=== PATIENT | female | born 1980 | race Caucasian/White ===

== ENCOUNTER 2017-06-23 21:13 | Emergency (ER) | payer SELFPAY ==
[2017-06-23] MEDS ORDERED: Ketorolac INJ* 30 MG/ML 1 ML VIAL IV ONE (22:06)
[2017-06-23] MEDS ORDERED: NS 0.9% 1000 ML* 1,000 ML IV ONE (22:06)
[2017-06-23] MEDS ORDERED: Ondansetron INJ* 2 MG/ML VIAL IV ONE (22:39)
[2017-06-23 22:46] LABS: Urine Bilirubin Negative (Negative); Urine Glucose Negative (Negative); Urine Nitrite Negative (Negative)
[2017-06-23 23:04] LABS: Hematocrit 37 % (35-47); Mean Corpuscular HGB Conc 33 g/dl (31-36); Mean Corpuscular Hemoglobin 29 pg (27-31); Mean Corpuscular Volume 88 fL (80-97); Mean Platelet Volume 8 um3 (7.4-10.4); Red Blood Count 4.18 10^6/ul (4.0-5.4); Red Cell Distribution Width 15 % (10.5-15); White Blood Count 4.6 10^3/ul (3.5-10.8)
[2017-06-23 23:15] LABS: ALT 11 U/L (7-52); AST 13 U/L (13-39); Albumin 4.5 g/dL (3.2-5.2); Alkaline Phosphatase 37 U/L (34-104); Anion Gap 4 mmol/L (2-11); BUN/Creatinine Ratio 15.1 (8-20); Blood Urea Nitrogen 11 mg/dL (6-24); C Reactive Protein < 1.00 mg/L (< 5.00); CO2 Carbon Dioxide 25 mmol/L (22-32); Calcium 8.8 mg/dL (8.6-10.3); Chloride 106 mmol/L (101-111); EGFR African American 114.7 (>60); EGFR Non-African American 89.2 (>60); Globulin 2.6 g/dL (2-4); Glucose 89 mg/dL (70-100); Sodium 135 mmol/L (133-145); Total Protein 7.1 g/dL (6.4-8.9)
[2017-06-23] MEDS ORDERED: oxyCODONE/Acetamin 5/325 MG* TAB PO ONE (23:29)
[2017-06-23] MEDS ORDERED: Ondansetron ODT TAB* 4 MG SL PRN (23:50)
[2017-06-23] MEDS ORDERED: Ondansetron TAB* 4 MG ONE (23:53)
[2017-06-23] MEDS ORDERED: Ondansetron TAB* 4 MG PO ONE (23:56)
[2017-06-24 00:19] VITALS: BP 132/69
--- NOTE | 2017-06-24 08:14 | RAD ---
HISTORY: Pelvic pain, history of cysts and endometriosis COMPARISONS: December 01, 2010 TECHNIQUE: Multiple transverse and longitudinal ultrasound images were obtained of the pelvis using grayscale, color Doppler, and spectral Doppler imaging using the endovaginal transducer. FINDINGS: UTERUS: The uterus measures 8 x 3.9 x 5.8 cm. There is a myometrial fibroid of anterior body measuring 1.1 x 0.5 x 0.8 centimeters. Multiple nabothian cysts are noted. ENDOMETRIUM: The endometrial stripe is smooth. The endometrium measures 0.4 cm in thickness. An IUD is noted centrally within the endometrial cavity towards the fundus. CUL-DE-SAC: There is no free fluid within the cul-de-sac. RIGHT OVARY: The right ovary measures 3.9 x 1.9 x 2.2 cm. Follicular cysts are noted measuring up to 1.9 cm. Normal arterial and venous waveforms are identifiable within the ovary on spectral Doppler imaging. LEFT OVARY: The left ovary measures 3.6 x 1.7 x 2.3 cm. Follicular cysts are noted measuring up to 1.8 cm. Normal arterial and venous waveforms are identifiable within the ovary on spectral Doppler imaging. BLADDER: The bladder is not well visualized. IMPRESSION: 1. FIBROID UTERUS. 2. IUD. 3. NO SONOGRAPHIC FEATURES OF TORSION. PLEASE NOTE THAT PARTIAL OR INTERMITTENT TORSION MAY BE SONOGRAPHICALLY NORMAL.
--- NOTE | 2017-06-29 06:20 | ED ---
Aminata Mark SooYoung, scribed for Joe Booker MD on 06/23/17 at 2206 . Abdominal Pain/Female - HPI Summary HPI Summary: A 36 y/o F presents to ED with c/o constant, suprapubic abd pain onset one week ago and worsening. She states the pain is of undulating intensity. Pert PMHx: ovarian cysts, endometriosis. She has an IUD in place, but has been spotting for past three months. She took some Percocet to mild relief. Pt lives in [place] and has been unable to see a PCP in the [place] area, and [facility] informed her that they didn't have U/S, referred her to ED for evaluation. - History of Current Complaint Chief Complaint: EDAbdPain Stated Complaint: LOWER LT ABD PAIN Time Seen by Provider: 06/23/17 22:00 Hx Obtained From: Patient, Medical Records Onset/Duration: Gradual Onset, Lasting Weeks - one week, Still Present Timing: Constant Severity Initially: Moderate Severity Currently: Moderate Pain Intensity: 6 Pain Scale Used: 0-10 Numeric Location: Suprapubic Alleviating Factor(s): Medications - Percocet, mildly Allergies/Adverse Reactions: Allergies Allergy/AdvReac Type Severity Reaction Status Date / Time No Known Allergies Allergy Verified 06/23/17 21:18 PMH/Surg Hx/FS Hx/Imm Hx Previously Healthy: No History: Reports: Other Problems/Disorders - ovarian cysts, endometriosis Sensory History: Denies: Hx Legally Blind Opthamlomology History: Denies: Hx Legally Blind Infectious Disease History: No Infectious Disease History: Denies: Traveled Outside the [place] in Last 30 Days - Family History Known Family History: Positive: Other - pos: endometriosis - Social History Occupation: Unemployed Lives: Alone Alcohol Use: None Hx Substance Use: No Substance Use Type: Reports: None Hx Tobacco Use: No Smoking Status (MU): Never Smoked Tobacco Review of Systems Negative: Fever Positive: Abdominal Pain All Other Systems Reviewed And Are Negative: Yes Physical Exam Triage Information Reviewed: Yes Vital Signs On Initial Exam: Initial Vitals Temp Pulse Resp BP Pulse Ox 98.2 F 62 18 127/89 100 06/23/17 21:16 06/23/17 21:16 06/23/17 21:16 06/23/17 21:16 06/23/17 21:16 Vital Signs Reviewed: Yes Appearance: Positive: Well-Appearing, No Pain Distress Skin: Positive: Warm Head/Face: Positive: Normal Head/Face Inspection Eyes: Positive: JUAN ENT: Positive: Hearing grossly normal Neck: Positive: Supple, Nontender Respiratory/Lung Sounds: Positive: Breath Sounds Present Cardiovascular: Positive: RRR Abdomen Description: Positive: Soft, Other: - mild suprspubic trenderness. Negative: Distended, Guarding Bowel Sounds: Positive: Present Musculoskeletal: Positive: Strength/ROM Intact Neurological: Positive: Alert, Oriented to Person Place, Time - [place] Coma Scale Coma Scale Total: 15 Diagnostics - Vital Signs Vital Signs Temp Pulse Resp BP Pulse Ox 06/23/17 21:16 98.2 F 62 18 127/89 100 - Laboratory Lab Results: Lab Results 06/23/17 06/23/17 06/23/17 Range/Units 22:36 22:50 22:50 WBC 4.6 (3.5-10.8) 10^3/ul RBC 4.18 (4.0-5.4) 10^6/ul Hgb 12.0 (12.0-16.0) g/dl Hct 37 (35-47) % MCV 88 (80-97) fL MCH 29 (27-31) pg MCHC 33 (31-36) g/dl RDW 15 (10.5-15) % Plt Count 194 (150-450) 10^3/ul MPV 8 (7.4-10.4) um3 Neut % (Auto) 49.5 (38-83) % Lymph % (Auto) 21.8 L (25-47) % Leake % (Auto) 18.7 H (1-9) % Eos % (Auto) 4.6 (0-6) % Baso % (Auto) 5.4 H (0-2) % Absolute Neuts (auto) 2.3 (1.5-7.7) 10^3/ul Absolute Lymphs (auto) 1.0 (1.0-4.8) 10^3/ul Absolute Monos (auto) 0.9 H (0-0.8) 10^3/ul Absolute Eos (auto) 0.2 (0-0.6) 10^3/ul Absolute Basos (auto) 0.2 (0-0.2) 10^3/ul Absolute Nucleated RBC 0 10^3/ul Nucleated RBC % 0.1 Sodium 135 (133-145) mmol/L Potassium 4.0 (3.5-5.0) mmol/L Chloride 106 (101-111) mmol/L Carbon Dioxide 25 (22-32) mmol/L Anion Gap 4 (2-11) mmol/L BUN 11 (6-24) mg/dL Creatinine 0.73 (0.51-0.95) mg/dL Est GFR ( Amer) 114.7 (>60) Est GFR (Non-Af Amer) 89.2 (>60) BUN/Creatinine Ratio 15.1 (8-20) Glucose 89 (70-100) mg/dL Calcium 8.8 (8.6-10.3) mg/dL Total Bilirubin 0.50 (0.2-1.0) mg/dL AST 13 (13-39) U/L ALT 11 (7-52) U/L Alkaline Phosphatase 37 (34-104) U/L C-Reactive Protein < 1.00 (< 5.00) mg/L Total Protein 7.1 (6.4-8.9) g/dL Albumin 4.5 (3.2-5.2) g/dL Globulin 2.6 (2-4) g/dL Albumin/Globulin Ratio 1.7 (1-3) Beta HCG, Quant < 0.60 mIU/mL Urine Color Yellow Urine Appearance Clear Urine pH 5.0 (5-9) Ur Specific [place] 1.021 (1.010-1.030) Urine Protein Negative (Negative) Urine Ketones Trace H (Negative) Urine Blood Negative (Negative) Urine Nitrate Negative (Negative) Urine Bilirubin Negative (Negative) Urine Urobilinogen Negative (Negative) Ur Leukocyte Esterase Negative (Negative) Urine Glucose Negative (Negative) Urine Ascorbic Acid * H (Negative) Result Diagrams: 06/23/17 22:50 06/23/17 22:50 Lab Statement: Any lab studies that have been ordered have been reviewed, and results considered in the medical decision making process. - Ultrasound No standard instances Ultrasound Interpretation: Positive (See Comments) - PELVIC U/S: IUD noted. Uterus retroverted. 8mm uterine fibroid. Endometrial strip is normal at 4.4 mm thickness. Multiple small nabothian cysts are noted. 2cm R adnexal cyst. Otherwise nml R ovary with positive Doppler blood flow. 1.8cm L adnexal cyst. Otherwise nml L ovary with positive Doppler blood flow. No acute abnormalities. Ultrasound Interpretation Completed By: Radiologist Re-Evaluation - Re-Evaluation 1 Re-Evaluation Time: 23:28 Change: Improved Comment: Discussing results and dispo with pt. Pt voiced understanding. Abdominal Pain Fem Course/Dx - Course Course Of Treatment: Pt is a 36 y/o F with PMHx: endometriosis and ovarian cysts presenting with c/o constant, suprapubic abd pain onset one week ago and worsening. She states the pain is of undulating intensity. She has an IUD in place, but has been spotting for past three months. She took some Percocet to mild relief. Pt lives in [place] and has been unable to see a PCP in the [place] area. Pt in fluids, toradol in ED. Blood work results are without significant abnormality. UA is nml except trace ketones and ascorbic acid present. Pelvic U /S impression shows "IUD noted. Uterus retroverted. 8mm uterine fibroid. Endometrial strip is normal at 4.4 mm thickness. Multiple small nabothian cysts are noted. 2cm R adnexal cyst. Otherwise nml R ovary with positive Doppler blood flow. 1.8cm L adnexal cyst. Otherwise nml L ovary with positive Doppler blood flow. No acute abnormalities." - Diagnoses Provider Diagnoses: Pelvic pain Discharge - Discharge Plan Condition: Stable Disposition: HOME Patient Education Materials: Pelvic Pain in Women (ED) Referrals: [facility] [place] [facility] [Outside] Non Staff,Doctor [Primary Care Provider] - Mychal Ryan MD [Medical Doctor] - 1 Day Additional Instructions: Follow up with Dr. Ryan, [employer], tomorrow. Please return to the ED if you experience new or worsening symptoms. The documentation as recorded by the Aimnata multani SooYoung accurately reflects the service I personally performed and the decisions made by me, Joe Booker MD.
== END 2017-06-24 00:18 | disposition home or self-care (01) ==
LOC: ED 21:13
DX: R10.2 Pelvic and perineal pain (principal); D25.9 Leiomyoma of uterus, unspecified; R10.32 Left lower quadrant pain
CPT/HCPCS: 36415; 76830; 80053; 81003; 84702; 85025; 86140; 96374; 96375; 99283; A9270-GY; J1885; J2405

== ENCOUNTER 2018-01-26 14:31 | Emergency (ER) | payer MEDICAID ==
[2018-01-26] MEDS ORDERED: NS 0.9% 1000 ML* 2,000 ML IV ONE (16:16)
[2018-01-26] MEDS ORDERED: Morphine INJ* 4 MG/ML 1 ML CARPUJECT IV ONE (16:17)
[2018-01-26] MEDS ORDERED: Ondansetron INJ* 2 MG/ML VIAL IV ONE ×2 (16:17)
[2018-01-26] MEDS ORDERED: Morphine INJ* 4 MG/ML 1 ML SYRINGE (NEW SYRINGE VERSION) ONE ×2 (16:38)
[2018-01-26] MEDS ORDERED: Morphine INJ* 4 MG/ML 1 ML SYRINGE (NEW SYRINGE VERSION) IV PRN (17:26)
[2018-01-26 17:36] LABS: Urine Appearance Clear; Urine Blood Negative (Negative); Urine Color Straw; Urine Ketones Negative (Negative); Urine Protein Negative (Negative); Urine Specific Gravity 1.003 (1.010-1.030); Urine Urobilinogen Negative (Negative)
[2018-01-26 17:37] LABS: ABS Basophils 0 10^3/ul (0-0.2); ABS Eosinophils 0.1 10^3/ul (0-0.6); ABS Lymphocytes 1.5 10^3/ul (1.0-4.8); ABS Monocytes 0.6 10^3/ul (0-0.8); ABS Neutrophils 1.8 10^3/ul (1.5-7.7); ABS Nucleated RBC 0 10^3/ul; Eosinophil % 1.6 % (0-6); Hematocrit 36 % (35-47); Hemoglobin 12.2 g/dl (12.0-16.0); Lymphocyte % 38.1 % (25-47); Mean Corpuscular HGB Conc 34 g/dl (31-36); Mean Corpuscular Hemoglobin 31 pg (27-31); Mean Corpuscular Volume 90 fL (80-97); Mean Platelet Volume 9 um3 (7.4-10.4); Nucleated Red Blood Cells % 0.1; Platelet Count 195 10^3/ul (150-450); Red Blood Count 3.94 10^6/ul (4.0-5.4); Red Cell Distribution Width 13 % (10.5-15)
[2018-01-26 17:46] LABS: INR 0.97 (0.77-1.02)
[2018-01-26 17:55] LABS: EGFR Non-African American 107.2 (>60)
[2018-01-26] MEDS ORDERED: Iohexol 300* (CONTRAST) 10 ML SDV IV ONE (18:07)
--- NOTE | 2018-01-26 19:57 | RAD ---
INDICATION: Abdominal pain. COMPARISON: There is an is made with a prior CT of the abdomen and pelvis from March 14, 2009. Correlation is also made with a prior pelvic ultrasound from January 26, 2018. TECHNIQUE: A CT scan of the abdomen and pelvis was performed with intravenous and oral contrast following intravenous injection of 77 ml of the patient 300 nonionic contrast. Contiguous axial sections were obtained from the lung bases through the symphysis pubis. Images were reconstructed in the coronal and sagittal planes. FINDINGS: The lung bases are clear. No pleural effusion is present. The liver and spleen are normal in size. There is a small hypodense lesion in the posterior segment of the right hepatic lobe measuring 0.9 cm in size. This was present on the prior exam and has increased in size and likely represents a cyst or hemangioma. No other focal abnormalities are seen. No calcified gallstones are noted. The pancreas appears to be within normal limits. The kidneys and adrenal glands are normal in size. No hydronephrosis is seen. No significant focal renal abnormality is seen. The aorta is normal in caliber and demonstrates homogeneous contrast opacification. No significant enlarged retroperitoneal lymph nodes are seen. The stomach, small and large bowel appear nondistended. The patient is status post appendectomy. There is mild sigmoid diverticulosis without evidence for diverticulitis. The uterus is retroverted and normal in size. There is a 1.6 x 1.4 cm left ovarian cyst which is a simple cyst on the prior ultrasound study. No free intraperitoneal air or fluid is seen. No significant focal osseous abnormality is seen. IMPRESSION: NO EVIDENCE FOR ACUTE FINDING OR CAUSE FOR THE PATIENT'S ABDOMINAL PAIN IS SEEN.
[2018-01-26] MEDS ORDERED: Morphine INJ* 4 MG/ML 1 ML SYRINGE (NEW SYRINGE VERSION) IV ONE (20:30)
[2018-01-26] MEDS ORDERED: Morphine INJ* 2 MG/ML 1 ML CARPUJECT ONE ×2 (20:38)
[2018-01-26 20:56] VITALS: BP 122/71
--- NOTE | 2018-01-27 01:39 | ED ---
Berry Mark Abhishek, scribed for Omar Moran MD on 01/26/18 at 2054 . Progress - Progress Note Progress Note: The pt is a sign out from Dr. Trejo. awaiting CT A/P. Upon evaluation, pt is still having abd pain. The Ct scan was reviewed and pt states she has a hx of endometriosisos. She has seen two surgeons in the past for similar symptoms, and the last one was in 2012. The pt's pain could be secondary to endometriosis. Pt also states that she used to take percocet at one dosage and she "ran out." - Results/Orders Results/Orders: Ct A/P reveals NO EVIDENCE FOR ACUTE FINDING OR CAUSE FOR THE PATIENT'S ABDOMINAL PAIN IS SEEN. ED Physician has reviewed this radiology report and agrees. Course/Dx - Course Course Of Treatment: Pt will be given one dose of morphine and given a prescription for percocet. The pt will be discharged home and is recommended to follow up with JEWELRY ENAMELER and GI within 2 to 3 days for rectal bleeds. The pt's dx will be abd pain. - Diagnoses Provider Diagnoses: Abdominal pain The documentation as recorded by the Berry multani Abhishek accurately reflects the service I personally performed and the decisions made by Dean guevara Abdul, MD.
--- NOTE | 2018-01-28 08:19 | ED ---
Asif aMrk Angela, scribed for Arthur Trejo MD on 01/26/18 at 1654 . GI/ HPI - HPI Summary HPI Summary: This pt is a 37 y/o female presenting to [facility] c/o abd pain and bloody stools today. She reports that yesterday she had a bowel movement with claim rep color and of "weird" consistency. Today she states she had 2 bowel movements, the first one she describes as black "chunky tarry" stools and the second one is described as bloody stools. Denies constipation, nausea, vomiting. Pt reports she had an US today for endometriosis and ovarian cysts. She states she was at Dr. Ryan's, [employer], office today and had severe abdominal pain. - History of Current Complaint Chief Complaint: EDAbdPain Time Seen by Provider: 01/26/18 16:20 Stated Complaint: ABNORMAL STOOL, ABD PAIN Hx Obtained From: Patient Onset/Duration: Started Hours Ago, Still Present Timing: Lasting Hours Current Severity: Moderate Pain Intensity: 10 Location of Pain: Diffuse Associated Signs and Symptoms: Positive: Black Tarry Stool, Bright Red Blood w/ Stool, Abdominal Pain. Negative: Nausea, Vomiting, Constipation Aggravating Factor(s): Nothing Alleviating Factor(s): Nothing - Allergy/Home Medications Allergies/Adverse Reactions: Allergies Allergy/AdvReac Type Severity Reaction Status Date / Time No Known Allergies Allergy Verified 01/26/18 14:38 PMH/Surg Hx/FS Hx/Imm Hx Endocrine/Hematology History: Denies: Hx Diabetes Cardiovascular History: Denies: Hx Hypertension History: Reports: Other Problems/Disorders - ovarian cysts, endometriosis Sensory History: Denies: Hx Legally Blind Opthamlomology History: Denies: Hx Legally Blind Infectious Disease History: No Infectious Disease History: Denies: Traveled Outside the [place] in Last 30 Days - Family History Known Family History: Positive: Other - pos: endometriosis - Social History Alcohol Use: Rare Hx Substance Use: No Substance Use Type: Reports: None Hx Tobacco Use: No Smoking Status (MU): Never Smoked Tobacco Review of Systems Negative: Fever, Chills Gastrointestinal: Other - bloody stools, black tar Positive: Abdominal Pain. Negative: Other - constipation Musculoskeletal: Negative Skin: Negative Neurological: Negative All Other Systems Reviewed And Are Negative: Yes Physical Exam - Summary Physical Exam Summary: VITAL SIGNS: Reviewed. GENERAL: Patient is a well-developed and nourished female who is lying comfortable in the stretcher. Patient is not in any acute respiratory distress. HEAD AND FACE: Normocephalic and atraumatic. EYES: PERRLA, EOMI x 2, No injected conjunctiva. EARS: Hearing grossly intact. Ear canals and tympanic membranes are WNL. MOUTH: Oropharynx within normal limits. NECK: Supple, trachea is midline, no adenopathy, no JVD. CHEST: Symmetric, no tenderness at palpation LUNGS: Clear to auscultation bilaterally. No wheezing or crackles. CVS: RRR, S1 and S2 present, no murmurs or gallops appreciated. ABDOMEN: Soft. Diffuse abdominal tenderness, mostly on the left side than the right. No signs of distention. Positive bowel sounds. No rebound no guarding, and no masses palpated. No abdominal bruit or pulsations. RECTAL EXAM: Normal sphincter tone. No hemorrhoids. No melena. No gross blood. EXTREMITIES: FROM in all major joints, no edema, no cyanosis or clubbing. NEURO: Alert and oriented x 3. No acute neurological deficits. Speech is normal. SKIN: Dry and warm Triage Information Reviewed: Yes Vital Signs On Initial Exam: Initial Vitals Temp Pulse Resp BP Pulse Ox 98.6 F 69 18 136/93 99 01/26/18 14:34 01/26/18 14:34 01/26/18 14:34 01/26/18 14:34 01/26/18 14:34 Vital Signs Reviewed: Yes Diagnostics - Vital Signs Vital Signs Temp Pulse Resp BP Pulse Ox 01/26/18 15:41 59 100 01/26/18 15:39 119/77 01/26/18 14:34 98.6 F 69 18 136/93 99 - Laboratory Result Diagrams: 01/26/18 17:04 01/26/18 17:04 Lab Statement: Any lab studies that have been ordered have been reviewed, and results considered in the medical decision making process. GIGU Course/Dx - Course Assessment/Plan: This pt is a 37 y/o female presenting to [facility] c/o abd pain and bloody stools today. She reports that yesterday she had a bowel movement with claim rep color and of "weird" consistency. Today she states she had 2 bowel movements, the first one she describes as black "chunky tarry" stools and the second one is described as bloody stools. Denies constipation, nausea, vomiting. Pt reports she had an US today for endometriosis and ovarian cysts. She states she was at Dr. Ryan's, [employer], office today and had severe abdominal pain. Test results without any significant abnormalities. In the ED course the pt was given IV fluids, morphine for the pain, and Zofran for the nausea and vomiting. Abdomen/Pelvis CT is pending at this time. Therefore the pt will be signed out to Dr. Moran awaiting CT abdomen/pelvis and for further work up and management. - Diagnoses Provider Diagnoses: Abdominal pain Discharge - Discharge Plan Condition: Stable Disposition: OTHER Discharge Disposition Comment: signed out to Dr. Moran, pending dispo, awaiting CT abdomen/pelvis. Referrals: Gal Blackmon DO [Primary Care Provider] - The documentation as recorded by the Asif multani Angela accurately reflects the service I personally performed and the decisions made by me, Arthur Trejo MD.
== END 2018-01-26 20:55 ==
LOC: ED 14:31
DX: R10.9 Unspecified abdominal pain (principal)
CPT/HCPCS: 36415; 74177; 80053; 81003; 82270; 83605; 83690; 84702; 85025; 85610; 85730; 86140; 86850; 86900; 86901; 96374; 96375; 99283; J2270; J2405; Q9967

== ENCOUNTER 2018-03-12 11:52 | Emergency (ER) | payer MEDICAID, OTHER ==
[2018-03-12] MEDS ORDERED: Ondansetron INJ* 2 MG/ML VIAL IV ONE (14:02)
[2018-03-12] MEDS ORDERED: NS 0.9% 1000 ML* 1,000 ML IV ONE (14:02)
[2018-03-12] MEDS ORDERED: Morphine INJ* 10 MG/ML 1 ML CARPUJECT IV ONE ×2 (14:02→14:23)
[2018-03-12] MEDS ORDERED: Morphine VIAL* 4 MG/ML VIAL (1 ml vial) IV ONE (14:13)
[2018-03-12 14:24] LABS: ABS Basophils 0 10^3/ul (0-0.2); ABS Eosinophils 0.1 10^3/ul (0-0.6); ABS Monocytes 0.6 10^3/ul (0-0.8); ABS Neutrophils 4.7 10^3/ul (1.5-7.7); ABS Nucleated RBC 0 10^3/ul; Eosinophil % 0.8 % (0-6); Hematocrit 35 % (35-47); Hemoglobin 11.9 g/dl (12.0-16.0); Lymphocyte % 14.9 % (25-47); Mean Corpuscular HGB Conc 34 g/dl (31-36); Mean Corpuscular Hemoglobin 31 pg (27-31); Mean Corpuscular Volume 91 fL (80-97); Mean Platelet Volume 7.6 um3 (7.4-10.4); Nucleated Red Blood Cells % 0; Platelet Count 185 10^3/ul (150-450); Red Blood Count 3.85 10^6/ul (4.0-5.4); Red Cell Distribution Width 13 % (10.5-15); White Blood Count 6.4 10^3/ul (3.5-10.8)
[2018-03-12 14:34] LABS: Urine Appearance Clear; Urine Blood Negative (Negative); Urine Color Straw; Urine Ketones Negative (Negative); Urine Protein Negative (Negative); Urine Specific Gravity 1.008 (1.010-1.030); Urine Urobilinogen Negative (Negative)
[2018-03-12 14:41] LABS: EGFR Non-African American 101.5 (>60)
[2018-03-12 14:42] LABS: INR 0.95 (0.77-1.02)
[2018-03-12] MEDS ORDERED: Iohexol 300* (CONTRAST) 10 ML SDV IV ONE (15:50)
[2018-03-12] MEDS ORDERED: Morphine INJ* 2 MG/ML 1 ML CARPUJECT IV ONE (16:12)
[2018-03-12] MEDS ORDERED: Morphine VIAL* 4 MG/ML VIAL (1 ml vial) IV PRN (16:16)
--- NOTE | 2018-03-12 16:48 | RAD ---
INDICATION: LEFT lower quadrant pain. Question diverticulitis. History of ovarian cysts. Post appendectomy. COMPARISON: January 26, 2018 TECHNIQUE: Multidetector CT images were obtained from the lung bases to the ischial tuberosities with 80 mL Omnipaque 300 IV and oral contrast. Multiplanar reformation. REPORT: Unremarkable visualized inferior thorax. Mild periportal edema at the liver most likely reflecting high state of hydration. Negative for biliary dilatation or suspicious focal hepatic lesions. No CT abnormality of the gallbladder, pancreas, spleen. Negative for CT abnormality of the upper GI or small bowel. Post appendectomy. Enteric contrast extends to the hepatic flexure of the colon. Moderately large volume of formed stool within the transverse and descending colon. Negative for appreciable colonic diverticulosis. Negative for ascites, free air, hernias. Normal adrenal glands. Unremarkable kidneys with symmetric nephrograms and pyelograms. Unremarkable nondilated ureters and distended urinary bladder. Retroverted uterus with heterogeneous myometrium likely secondary to small fibroids. Unremarkable adnexal regions. Negative for lymphadenopathy. Normal diameter abdominal aorta and iliac arteries. Physiologic distention of the IVC. Negative for suspicious osseous lesions. IMPRESSION: No acute abdominal pelvic pathologic process evident.
[2018-03-12 17:18] VITALS: BP 111/91
--- NOTE | 2018-03-12 17:41 | ED ---
Kirsten Mark Elizabeth, scribed for David Romero on 03/12/18 at 1410 . Abdominal Pain/Female - HPI Summary HPI Summary: This patient is a 37 year old F presenting to [facility] with a chief complaint of abdominal pain in the LLQ since 3-4 days ago. The patient rates the pain 8/10 in severity. Symptoms aggravated by nothing. Symptoms alleviated by nothing. Patient reports nausea. Patient denies vomiting, hematuria, vaginal bleeding, vaginal discharge, diarrhea. - History of Current Complaint Chief Complaint: EDAbdPain Stated Complaint: ABD PAIN Time Seen by Provider: 03/12/18 13:50 Hx Obtained From: Patient Onset/Duration: Lasting Days, Still Present, Worse Since - This morning Timing: Constant Severity Initially: Moderate Severity Currently: Moderate Pain Intensity: 8 Pain Scale Used: 0-10 Numeric Location: Diffuse Aggravating Factor(s): Nothing Alleviating Factor(s): Nothing Associated Signs and Symptoms: Positive: Nausea. Negative: Urinary Symptoms, Vaginal Bleeding, Vomiting, Diarrhea Allergies/Adverse Reactions: Allergies Allergy/AdvReac Type Severity Reaction Status Date / Time No Known Allergies Allergy Verified 03/12/18 11:57 PMH/Surg Hx/FS Hx/Imm Hx Endocrine/Hematology History: Denies: Hx Diabetes Cardiovascular History: Denies: Hx Hypertension History: Reports: Other Problems/Disorders - ovarian cysts, endometriosis Sensory History: Denies: Hx Legally Blind Opthamlomology History: Denies: Hx Legally Blind - Surgical History Surgery Procedure, Year, and Place: APPENDECTOMY 2009 Infectious Disease History: No Infectious Disease History: Denies: Traveled Outside the [place] in Last 30 Days - Family History Known Family History: Positive: Other - pos: endometriosis - Social History Alcohol Use: Rare Hx Substance Use: No Substance Use Type: Reports: None Hx Tobacco Use: No Smoking Status (MU): Never Smoked Tobacco Review of Systems Negative: Chest Pain Negative: Cough Positive: Abdominal Pain, Nausea. Negative: Vomiting, Diarrhea Positive: other - negative vaginal bleeding. Negative: discharge, hematuria All Other Systems Reviewed And Are Negative: Yes Physical Exam - Summary Physical Exam Summary: Appearance: Well appearing, no pain distress Skin: warm, dry, reflects adequate perfusion Head/face: normal Eyes: EOMI, JUAN ENT: normal Neck: supple, non-tender Respiratory: CTA, breath sounds present Cardiovascular: RRR, pulses symmetrical ~ Abdomen: diffuse tenderness, soft Bowel: present Musculoskeletal: normal, strength/ROM intact Neuro: normal, sensory motor intact, A&Ox3 Triage Information Reviewed: Yes Vital Signs On Initial Exam: Initial Vitals Temp Pulse Resp BP Pulse Ox 98.0 F 63 14 111/69 100 03/12/18 11:54 03/12/18 11:54 03/12/18 11:54 03/12/18 11:54 03/12/18 11:54 Vital Signs Reviewed: Yes Diagnostics - Vital Signs Vital Signs Temp Pulse Resp BP Pulse Ox 03/12/18 11:54 98.0 F 63 14 111/69 100 - Laboratory Lab Results: Lab Results 03/12/18 03/12/18 03/12/18 Range/Units 14:16 14:16 14:16 WBC 6.4 (3.5-10.8) 10^3/ul RBC 3.85 L (4.0-5.4) 10^6/ul Hgb 11.9 L (12.0-16.0) g/dl Hct 35 (35-47) % MCV 91 (80-97) fL MCH 31 (27-31) pg MCHC 34 (31-36) g/dl RDW 13 (10.5-15) % Plt Count 185 (150-450) 10^3/ul MPV 7.6 (7.4-10.4) um3 Neut % (Auto) 73.9 (38-83) % Lymph % (Auto) 14.9 L (25-47) % Gulf % (Auto) 9.9 H (0-7) % Eos % (Auto) 0.8 (0-6) % Baso % (Auto) 0.5 (0-2) % Absolute Neuts (auto) 4.7 (1.5-7.7) 10^3/ul Absolute Lymphs (auto) 1.0 (1.0-4.8) 10^3/ul Absolute Monos (auto) 0.6 (0-0.8) 10^3/ul Absolute Eos (auto) 0.1 (0-0.6) 10^3/ul Absolute Basos (auto) 0 (0-0.2) 10^3/ul Absolute Nucleated RBC 0 10^3/ul Nucleated RBC % 0 INR (Anticoag Therapy) 0.95 (0.77-1.02) APTT 30.0 (26.0-36.3) seconds Sodium 138 L (139-145) mmol/L Potassium 4.0 (3.5-5.0) mmol/L Chloride 107 (101-111) mmol/L Carbon Dioxide 26 (22-32) mmol/L Anion Gap 5 (2-11) mmol/L BUN 10 (6-24) mg/dL Creatinine 0.65 (0.51-0.95) mg/dL Est GFR ( Amer) 130.5 (>60) Est GFR (Non-Af Amer) 101.5 (>60) BUN/Creatinine Ratio 15.4 (8-20) Glucose 102 H (70-100) mg/dL Lactic Acid (0.5-2.0) mmol/L Calcium 8.8 (8.6-10.3) mg/dL Total Bilirubin 0.40 (0.2-1.0) mg/dL AST 12 L (13-39) U/L ALT 11 (7-52) U/L Alkaline Phosphatase 40 (34-104) U/L Total Protein 6.4 (6.4-8.9) g/dL Albumin 4.1 (3.2-5.2) g/dL Globulin 2.3 (2-4) g/dL Albumin/Globulin Ratio 1.8 (1-3) Lipase 33 (11.0-82.0) U/L Beta HCG, Quant < 0.60 mIU/mL Urine Color Urine Appearance Urine pH (5-9) Ur Specific [place] (1.010-1.030) Urine Protein (Negative) Urine Ketones (Negative) Urine Blood (Negative) Urine Nitrate (Negative) Urine Bilirubin (Negative) Urine Urobilinogen (Negative) Ur Leukocyte Esterase (Negative) Urine Glucose (Negative) 03/12/18 03/12/18 Range/Units 14:16 14:20 WBC (3.5-10.8) 10^3/ul RBC (4.0-5.4) 10^6/ul Hgb (12.0-16.0) g/dl Hct (35-47) % MCV (80-97) fL MCH (27-31) pg MCHC (31-36) g/dl RDW (10.5-15) % Plt Count (150-450) 10^3/ul MPV (7.4-10.4) um3 Neut % (Auto) (38-83) % Lymph % (Auto) (25-47) % Gulf % (Auto) (0-7) % Eos % (Auto) (0-6) % Baso % (Auto) (0-2) % Absolute Neuts (auto) (1.5-7.7) 10^3/ul Absolute Lymphs (auto) (1.0-4.8) 10^3/ul Absolute Monos (auto) (0-0.8) 10^3/ul Absolute Eos (auto) (0-0.6) 10^3/ul Absolute Basos (auto) (0-0.2) 10^3/ul Absolute Nucleated RBC 10^3/ul Nucleated RBC % INR (Anticoag Therapy) (0.77-1.02) APTT (26.0-36.3) seconds Sodium (139-145) mmol/L Potassium (3.5-5.0) mmol/L Chloride (101-111) mmol/L Carbon Dioxide (22-32) mmol/L Anion Gap (2-11) mmol/L BUN (6-24) mg/dL Creatinine (0.51-0.95) mg/dL Est GFR ( Amer) (>60) Est GFR (Non-Af Amer) (>60) BUN/Creatinine Ratio (8-20) Glucose (70-100) mg/dL Lactic Acid 0.5 (0.5-2.0) mmol/L Calcium (8.6-10.3) mg/dL Total Bilirubin (0.2-1.0) mg/dL AST (13-39) U/L ALT (7-52) U/L Alkaline Phosphatase (34-104) U/L Total Protein (6.4-8.9) g/dL Albumin (3.2-5.2) g/dL Globulin (2-4) g/dL Albumin/Globulin Ratio (1-3) Lipase (11.0-82.0) U/L Beta HCG, Quant mIU/mL Urine Color Straw Urine Appearance Clear Urine pH 8.0 (5-9) Ur Specific [place] 1.008 L (1.010-1.030) Urine Protein Negative (Negative) Urine Ketones Negative (Negative) Urine Blood Negative (Negative) Urine Nitrate Negative (Negative) Urine Bilirubin Negative (Negative) Urine Urobilinogen Negative (Negative) Ur Leukocyte Esterase Negative (Negative) Urine Glucose Negative (Negative) Result Diagrams: 03/12/18 14:16 03/12/18 14:16 Lab Statement: Any lab studies that have been ordered have been reviewed, and results considered in the medical decision making process. - CT Abd/Pelvis CT CT Interpretation: No Acute Changes - IMPRESSION: No acute abdominal pelvic pathologic process evident. Dr. Romero has reviewed this report. CT Interpretation Completed By: Radiologist Re-Evaluation - Re-Evaluation first re-eval Re-Evaluation Time: 17:06 Change: Improved Comment: Discussed imaging results and course of treatment with patient Abdominal Pain Fem Course/Dx - Course Course Of Treatment: This patient is a 37 year old F c/o abdominal pain in the LLQ since 3-[address] Abd/Pelvis reveals, per radiologist, no acute changes. Test results with no significant abnormalities. Patient will be discharged home with diagnosis of nonspecific abdominal pain and is advised to follow up with her primary care physician in 3-4 days. - Diagnoses Differential Diagnosis: Positive: Appendicitis, Diverticulitis, Pancreatitis, Renal Colic Provider Diagnoses: Nonspecific abdominal pain Discharge - Sign-Out/Discharge Documenting (check all that apply): Discharge/Admit/Transfer - Discharge Plan Condition: Stable Disposition: HOME Prescriptions: Oxycodone HCl/Acetaminophen [Percocet] 1 tab PO TID #6 tab MDD 3 Patient Education Materials: Acute Abdominal Pain (ED) Referrals: Gal Blackmon DO [Primary Care Provider] - 3 Days (Follow up with primary care physician in 3-4 days.) Additional Instructions: Follow up with primary care physician in 3-4 days. Return to the emergency department with any new or worsening symptoms. - Billing Disposition and Condition Condition: STABLE Disposition: HOME The documentation as recorded by the Kirsten multani Elizabeth accurately reflects the service I personally performed and the decisions made by Heather guevara Emmanuel.
== END 2018-03-12 17:19 | disposition home or self-care (01) ==
LOC: ED 11:52
DX: R10.32 Left lower quadrant pain (principal); R11.0 Nausea; Z32.02 Encounter for pregnancy test, result negative
CPT/HCPCS: 36415; 74177; 80053; 81003; 83605; 83690; 84702; 85025; 85610; 85730; 96374; 96375; 96376; 99283; J2270; J2405; Q9967

== ENCOUNTER 2018-05-20 11:27 | Emergency (ER) | payer OTHER ==
--- OUTSIDE RECORDS SUMMARY | 2018-05-20 11:34 | XMS REPORT ---
:1980 External Reference #:[id number] Author Organization [employer] Address [address] [place] [address] Phone [phone] Care Team Providers Name Role Phone Merrill Blackmon M.D. Primary Care Physician Unavailable Payers Type Date Identification Numbers Payment Provider Subscriber Commercial Policy Number: [id number] [employer] [place] Humaira Veras PayID: [id number] [address] [place] [address] Commercial Policy Number: [id number] [employer] Humaira Veras PayID: [id number] [address] [place] [address] Problems Date Description Provider Status Onset: 04/28/2018 Myopia Rakel Page O.D. Active Onset: 04/28/2018 Regular astigmatism Rakel Page O.D. Active Family History Date Family Member(s) Problem(s) Comments Father Diabetes Mother No Current Problems Social History Type Date Description Comments Marital Status Single Work Status Unemployed ETOH Use Rarely consumes alcohol Smoking Patient is a current smoker, smokes some days Recreational Drug Use Denies Drug Use Daily Caffeine Does Not Consume Caffeine Allergies, Adverse Reactions, Alerts Date Description Reaction Status Severity Comments 04/28/2018 NKDA active Medications Medication Date Status Form Strength Qnty SIG Indications Ordering Provider Clonazepam Active Tablets 0.5mg as needed Unknown 0 Percocet Active Tablets 2.5-325mg as needed Unknown 0 Zofran Active Tablets 4mg as needed Unknown 0 Results Description No Information Procedures Date CPT Code Description Status 04/15/2010 05633 Determination Of Refractive State Completed 04/15/2010 48643 New Patient Comprehensive Exam Completed 04/15/2010 202 Refit SCL Completed Plan of Care 04/28/2018 - Rakel K. Camilo, O.D.H52.13 Myopia, bilateralComments:Smoking can increase the risk of developing or worsening any eye related disease, as well as affect your overall health. If you are a smoker, we strongly recommend that you quit.If you are not a smoker, we strongly recommend that you do not start. You have Myopia, or near sightedness. I have given you a prescription for glasses.Follow up:H52.223 Regular astigmatism, bilateralComments:Astigmatism is a common vision condition that happens when a person's cornea is not symmetrical. Dr. Page has given you a prescription to correct for this.
[2018-05-20 11:54] VITALS: BP 112/69
[2018-05-20] MEDS ORDERED: Ketorolac INJ* 60 MG/2 ML VIAL IM ONE (12:01)
--- NOTE | 2018-05-20 13:08 | RAD ---
Indication: History of endometriosis. 1.5 days LEFT lower quadrant pain. Comparison: March 12, 2018 CT and January 26, 2018 ultrasound. Technique: Transvaginal pelvic ultrasound. Report: Retroverted 7.7 x 4.5 x 5.5 cm uterus. Normal range 12 mm endometrium. Small nabothian cysts at the cervix with largest measuring 0.9 cm. RIGHT uterine body myometrial fibroid measures 1.3 x 0.8 x 1.1 cm enlarged from 1.2 x 0.5 x 0.8 cm previously. Small volume of free fluid in the RIGHT adnexal region. 3.5 x 2.2 x 2.5 cm RIGHT ovary with documented vascular flow is remarkable for a moderately well-circumscribed 1.3 x 1.6 x 1.5 cm heterogeneously hypoechoic lesion devoid of intrinsic vascularity which may represent a complex cyst or solid lesion new compared with the previous exam. 3.1 x 1.4 x 2.4 cm LEFT ovary with documented vascular flow is remarkable for a dominant 1.3 cm follicular cyst without concern. Dominant LEFT parametrial vein measures 0.6 cm at rest and 0.7 cm with Valsalva. IMPRESSION: #. Probable mild interval enlargement of solitary 1.3 cm maximum dimension RIGHT uterine body myometrial fibroid compared with the January 26, 2018 exam. #. 1.6 cm complex cyst versus solid lesion of the RIGHT ovary is low suspicion given small size. An involuting hemorrhagic cyst is favored. Reassessment of this low suspicion finding with ultrasound in approximate 1-2 menstrual cycle suggested.
--- NOTE | 2018-05-20 13:15 | UC ---
Nicole Mark Julia, scribed for Arthur Trejo MD on 05/20/18 at 1211 . Abdominal Pain Female HPI - HPI Summary HPI Summary: Patient is here complaining cough left pelvic pain similar to her pain when he has an exacerbation of endometriosis. She denies any vaginal bleeding or vaginal discharge. She denies any abdominal pain. Last menstrual cycle it was 3 weeks ago. She reports that she is about to have her menstrual cycle in the next couple days. She has chronic pelvic pain secondary to her endometriosis. The pain is 5 out of 10. The pain is dull constant and nonradiating. She denies any urinary symptoms. - History of Current Complaint Chief Complaint: UCAbdominalPain Stated Complaint: ABD PAIN Time Seen by Provider: 05/20/18 11:44 Hx Last Menstrual Period: 04/30/18 Onset/Duration: Lasting Days Timing: Intermittent Episodes Lasting: Pain Intensity: 7 Pain Scale Used: 0-10 Numeric Location: Discrete At: LLQ Associated Signs and Symptoms: Positive: Nausea. Negative: Vomiting Allergies/Adverse Reactions: Allergies Allergy/AdvReac Type Severity Reaction Status Date / Time No Known Allergies Allergy Verified 03/12/18 11:57 PMH/Surg Hx/FS Hx/Imm Hx Previously Healthy: Yes - endometriosis - Surgical History Surgical History: Yes Surgery Procedure, Year, and Place: APPENDECTOMY 2008 - Family History Known Family History: Positive: Other - pos: endometriosis - Social History Alcohol Use: Rare Substance Use Type: None Smoking Status (MU): Never Smoked Tobacco Review of Systems Gastrointestinal: Negative - vomiting, Abdominal Pain, Nausea All Other Systems Reviewed And Are Negative: Yes Physical Exam - Summary Physical Exam Summary: VITAL SIGNS: Reviewed. GENERAL: Patient is a well-developed and nourished female who is lying comfortable in the stretcher. Patient is not in any acute respiratory distress. HEAD AND FACE: Normocephalic EYES: PERRLA, EOMI x 2. EARS: Hearing grossly intact. MOUTH: Oropharynx within normal limits. NECK: Supple, trachea is midline, no adenopathy, no JVD, no carotid bruit. CHEST: Symmetric, no tenderness at palpation LUNGS: Clear to auscultation bilaterally. No wheezing or crackles. CVS: Regular rate and rhythm, S1 and S2 present, no murmurs or gallops appreciated. ABDOMEN: Soft. Bowel sounds are normal. No abdominal abnormal pulsations. Tenderness in the left pelvic area. EXTREMITIES: Full ROM in all major joints, no edema, no cyanosis or clubbing. NEURO: Alert and oriented x 3. No acute neurological deficits. Speech is normal and follows commands. SKIN: Dry and warm Patient declined a pelvic exam. Triage Information Reviewed: Yes Vital Signs: Initial Vital Signs Temp 99 F 05/20/18 11:44 Pulse 63 05/20/18 11:44 Resp 18 05/20/18 11:44 BP 112/69 05/20/18 11:44 Pulse Ox 99 05/20/18 11:44 Vital Signs Reviewed: Yes Abd Pain Female Course/Dx - Course Course Of Treatment: In the ED course the patient declined a pelvic exam. The patient was given Toradol for the pain. Pelvic ultrasound impression: Probable mild interval enlargement of solitary 1.3 cm maximum dimension RIGHT uterine body myometrial fibroid compared with the January 26, 2018 exam. 1.6 cm complex cyst versus solid lesion of the RIGHT ovary is low suspicion given small. size. An involuting hemorrhagic cyst is favored. Reassessment of this low suspicion. finding with ultrasound in approximate 1-2 menstrual cycle suggested. Since the patient has history of chronic pelvic pain secondary to endometriosis she will follow-up with her [facility] and [facility]. Patient was instructed to return to the urgent care or go to the emergency department if the patient's symptoms worsen. She understands and agrees. - Differential Dx/Diagnosis Provider Diagnoses: Acute on chronic pelvic pain Discharge - Sign-Out/Discharge Documenting (check all that apply): Discharge/Admit/Transfer - Discharge Plan Condition: Stable Disposition: HOME Prescriptions: oxyCODONE/Acetamin 5/325 MG* [Percocet 5/325 TAB*] 1 tab PO Q6H PRN #10 tab MDD 4 PRN Reason: Pain Patient Education Materials: Pelvic Pain (ED) Referrals: Gal Blackmon DO [Primary Care Provider] - Additional Instructions: Take medications as instructed Increase your fluid intake Return to the UC if symptoms worsen - Billing Disposition and Condition Condition: STABLE Disposition: Home The documentation as recorded by the Nicole multani Julia accurately reflects the service I personally performed and the decisions made by Neil guevara Walter, MD.
== END 2018-05-20 13:22 | disposition home or self-care (01) ==
LOC: UCEAST 11:27
DX: R10.2 Pelvic and perineal pain (principal); G89.29 Other chronic pain
CPT/HCPCS: 76830; 81003; 84702; 96372; 99201; G0463; J1885

== ENCOUNTER 2018-12-24 21:10 | Emergency (ER) | payer OTHER ==
--- OUTSIDE RECORDS SUMMARY | 2018-12-24 21:32 | XMS REPORT | Continuity of Care Document ---
:1980 External Reference #:[id number] Author Name Lakshmi Duarte Care Team Providers Name Role Phone Gal Blackmon D.O. Primary Care Physician Unavailable Payers Type Date Identification Numbers Payment Provider Subscriber Policy Number: [id number] Isai Ver[employer] Group Name: [id number] [address] PayID: [id number] [place] [address] Advance Directives Description No Information Available Problems Description No Information Family History Date Family Member(s) Problem(s) Comments General Diabetes General Possible Lupus Father Diabetes Father Colon Polyps Father Stroke TIA Mother Lyme in her mother Siblings 4 Anxiety, Lyme Disease and IBS Social History Type Date Description Comments Sex Unknown ETOH Use Rarely consumes alcohol ETOH Use Drinks Alcoholic Beverages Occasionally Tobacco Use Start: Unknown End: Patient is a former smoker Unknown Smoking Status Reviewed: 12/06/18 Patient is a former smoker Exercise Type/Frequency Exercises rarely Allergies, Adverse Reactions, Alerts Description No Known Drug Allergies Medications Medication Date Status Form Strength Qnty SIG Indications Ordering Provider Meloxicam 12/01/ Active Tablets 7.5mg 42tabs take one tab M46.90 2018 twice daily Omar, as needed M.DBebe for pain, avoid other nsaids B12 Fast 12/01/ Active Tablets 5000mcg 90tabs sublingual R20.8 Sean 2018 Dispers daily Marcelo Nelson Tramadol HCL 10/19/ Active Tablets 50mg 60tabs take 1 2017 tablet by Omar mouth two M.D. times daily as needed for pain maximum daily dose of 2 tablets per day Clonazepam / Active Tablets 0.5mg take one tab Babiak, 0000 bid (prn) MD Trip Baclofen / Active Tablets 10mg prn Richard, 0000 Sandra Neff MD Zolpidem / Active Tablets 10mg Take 1 Unknown Tartrate 0000 Tablet By Mouth Nightly as Needed Maximum Daily Dose Of 1 Per Day Zofran 06/04/ Hx Tablets 4mg 10tabs 1 q 6 hours Elham 2009 - prn nausea Marlen, 10/04/ M.D., FACP 2018 Prempro 06/04/ Hx Tablets Unknown 30tabs po qd Elham 2009 - , 09/02/ M.D., FACP 2009 Lupron 06/04/ Hx Unknown Elham 2009 - , M.D., FACP 2009 Cymbalta 04/29/ Hx Caps DR 30mg 90caps 1 tablet Elham 2009 - Part every , M.D., FACP 2018 Klonopin 04/29/ Hx Tablets 0.5mg 60tabs 1 po bid prn Elham 2009 - , M.D., FACP 2018 Nuvaring / Hx Ring 0.12-0.015 3units insert one Unknown 0000 - mg/24HR pv monthly 2017 Zolpidem / Hx Tablets 10mg Babiak, Tartrate 0000 - MD Trip 2017 Oxycodone-Shane / Hx Tablets 5-325mg Unknown taminophen 0000 - 2018 Immunizations CPT Code Status Date Vaccine Lot # [id number] Given 11/27/2009 Influenza Virus Vaccine, Pandemic Formulation [id number] Given 11/27/2009 Administration Swine Flu Shot Vital Signs Date Vital Result Comment 12/06/2018 10:11am Height 69 inches 5'9" Weight 129.38 lb Heart Rate 77 /min BP Systolic 111 mmHg BP Diastolic 77 mmHg Respiratory Rate 16 /min Body Temperature 97.4 F O2 % BldC Oximetry 100 % BMI (Body Mass Index) 19.1 kg/m2 12/01/2018 2:28pm Height 69 inches 5'9" Weight 130.50 lb Heart Rate 63 /min BP Systolic 110 mmHg BP Diastolic 70 mmHg O2 % BldC Oximetry 98 % BMI (Body Mass Index) 19.3 kg/m2 10/04/2018 12:58pm Height 69 inches 5'9" Weight 140.00 lb Heart Rate 71 /min BP Systolic Sitting 110 mmHg BP Diastolic Sitting 68 mmHg Pain Level 4 O2 % BldC Oximetry 97 % BMI (Body Mass Index) 20.7 kg/m2 09/02/2010 2:50pm Weight 134.00 lb Heart Rate 64 /min BP Systolic 124 mmHg BP Diastolic 96 mmHg Results Test Date Facility Test Result H/L Range Note 1,25 Dihydroxy 10/04/2018 [facility] Vitamin D 1,25 TNP () 1 Vitamin D [address] ([place]) [address], [place] [address] [phone] Vitamin D3 1,25 (Oh) 2 TNP () 2 Vitamin D2 1,25 (Oh) 2 TNP () 3 Hla B27 10/04/2018 [facility] Hla B27 Positive [address] [place] [address] [phone] Hla B27 Interp See Comment 5 CBC Auto Diff 10/04/2018 [facility] White Blood 4.2 10^3/uL N 3.5-10.[address] [place] [address] [phone] Red Blood Count 4.25 10^6/uL N 4.00-5.40 Hemoglobin 12.9 g/dL N 12.0-16.0 Hematocrit 38 % N 35-47 Mean Corpuscular Volume 89 fL N 80-97 Mean Corpuscular Hemoglobin 30 pg N 27-31 Mean Corpuscular HGB Conc 34 g/dL N 31-36 Red Cell Distribution Width 13 % N 10.5-15 Platelet Count 232 10^3/uL N 150-450 Mean Platelet Volume 8.0 fL N 7.4-10.4 Abs Neutrophils 2.3 10^3/uL N 1.5-7.7 Abs Lymphocytes 1.3 10^3/uL N 1.0-4.8 Abs Monocytes 0.6 10^3/uL N 0-0.8 Abs Eosinophils 0 10^3/uL N 0-0.6 Abs Basophils 0 10^3/uL N 0-0.2 Abs Nucleated RBC 0 10^3/uL Granulocyte % 54.2 % N 38-83 Lymphocyte % 30.7 % N 25-47 Monocyte % 13.0 % High 0-7 Eosinophil % 1.0 % N 0-6 Basophil % 1.1 % N 0-2 Nucleated Red Blood Cells % 0 Laboratory test 10/04/2018 [facility] Ach Receptor 0.00 nmol/L <=0.[address] [place] [address] [phone] Cyclic Citrullinated Pep Igg <15.6 U 7 Erythrocyte Sed Rate 8 mm/Hr N 0-14 C Reactive Protein < 1.00 mg/L N <8.01 Ferritin 13.9 ng/mL N 11-307 Transferrin 264 mg/dL N 203-362 Tick-Borne Panel 10/04/2018 [facility] Babesia Negative Negative PCR Blood [address] [place] [address] [phone] Babesia ducani Negative Negative Babesia divergens/Mo-1 Negative Negative 8 Anaplasma phagocytophilum Negative Negative Ehrlichia chaffeensis Negative Negative Ehrlichia ewingii/canis Negative Negative Ehrlichia muris-like Negative Negative 9 B. miyamotoi PCR, B Negative Negative 10 Lyme Western 10/04/2018 [facility] Lyme Disease Negative Negative Blot [address] [place] [address] [phone] Lyme Disease IgG Bands Present No bands detecte <SEE NOTE> kDa 11 Lyme Disease IgM Ab WB Negative Negative Lyme Disease IgM Bands Present No bands detecte <SEE NOTE> kDa 12 Lyme Disease Interpretation See Comment 13 Laboratory test 10/04/2018 [facility] Creatine 36 U/L N 10- [address] Kinase(CK) [place] [address] [phone] Vitamin B12 And 10/04/2018 [facility] Vitamin B12 349 pg/mL N 180-504 [address] [place] [address] [phone] Folic Acid (Folate) 18.92 ng/mL >3.99 Immunoglobulins 10/04/2018 [facility] Immunoglobulin G 1190 767 - [address] mg/dL [address] [place] [address] [phone] Immunoglobulin M 162 mg/dL 37 - 286 Immunoglobulin A 182 mg/dL 61 - 356 Donavan Stephens 10/04/2018 [facility] Ebv Capsid Positive Negative Comprehensive [address] [place] [address] [phone] Ebv Capsid Ag IgM Ab Negative Negative Donavan-Stephens Nuclear Antigen Positive Negative Donavan-Stephens Virus Interp See Comment 16 Celiac Hla 10/04/2018 [facility] Hla-Dqa1 SEE BELOW [address] [place] [address] [phone] Hla-DQB1 SEE BELOW 18 Celiac Gene Pairs Present? Yes Celiac Gene Interpretation See Comment 19 Celiac Panel 10/04/2018 [facility] Tissue Transglutaminase <1.2 U/mL [address] [place] [address] [phone] Immunoglobulin A 181 mg/dL 61 - 356 Celiac Interpretation See Comment 21 Laboratory 10/04/2018 [facility] Complement C3 73 mg/dL Abnormal 75 - 22 test finding [address] [place] [address] [phone] Complement C4 10 mg/dL Abnormal 14 - 40 23 Anti Double Stranded Dna AB <12.3 IU/mL 24 Cony Igg AB Reflex 10/04/2018 [facility] SS-A/Ro Antibody <0.2 U [address] [place] [address] [phone] SS-B/La Antibody <0.2 U 26 Sm (Tanner) IgG Antibody <0.2 U 27 PEDIATRIC ONCOLOGIST Antibody, IgG 0.2 U 28 Scl-70 (Scleroderma) Antibody <0.2 U 29 Yana-1 Antibody <0.2 U 30 Laboratory test 10/04/2018 [facility] Angiotensin 21 U/L 8 - 53 [address] [place] [place] [address] [phone] 1 Vitamin D, 1,25-Dihydroxy was cancelled on 10/07/2018 at 09:11; Reason: Test obsolete-cancel FV125, change order to DHVD. 2 Vitamin D, 1,25-Dihydroxy was cancelled on 10/07/2018 at 09:11; Reason: Test obsolete-cancel FV125, change order to DHVD. 3 Vitamin D, 1,25-Dihydroxy was cancelled on 10/07/2018 at 09:11; Reason: Test obsolete-cancel FV125, change order to DHVD. Test Performed by: [facility] [address] [place] [address] 4 REFERENCE VALUE Not Applicable 5 HLA-B27 antigen was detected. Approximately 8% of the normal population carries the HLA-B27 antigen. HLA-B27 is present in approximately 89% of patients with ankylosing spondylitis, 79% of patients with Riky's syndrome and 42% of patients with juvenile rheumatoid arthritis. However, lacking other data, it is not diagnostic for these disorders. This test does not differentiate B27 alleles. i.e. B*27:05, B*27:06, etc. ADDITIONAL INFORMATION Method: Flow Cytometry Performing Laboratory CLIA# [id number] Test Performed by: [facility] - [address] [address] 6 ADDITIONAL INFORMATION This test was developed and its performance characteristics determined by [facility] in a manner consistent with CLIA requirements. This test has not been cleared or approved by the U.S. Food and Drug Administration. Test Performed by: [facility] - [address] [address] 7 REFERENCE VALUE <20.0 (Negative) Test Performed by: [facility] - [facility] [address] [place] [address] 8 ADDITIONAL INFORMATION This test was developed and its performance characteristics determined by [facility] in a manner consistent with CLIA requirements. This test has not been cleared or approved by the U.S. Food and Drug Administration. 9 ADDITIONAL INFORMATION This test was developed and its performance characteristics determined by [facility] in a manner consistent with CLIA requirements. This test has not been cleared or approved by the U.S. Food and Drug Administration. 10 ADDITIONAL INFORMATION This test was developed and its performance characteristics determined by [facility] in a manner consistent with CLIA requirements. This test has not been cleared or approved by the U.S. Food and Drug Administration. Test Performed by: [facility] - [place] [id number] 11 No bands detected 12 No bands detected 13 Specific serologic response to B. burgdorferi infection is not detected, but cannot rule out early infection during which low or undetectable antibody levels to B. burgdorferi may be present. If clinically indicated, a new serum specimen should be submitted in 7-14 days. ADDITIONAL INFORMATION Per CDC criteria, the Lyme IgG Immunoblot is interpreted as positive if IgG-class antibodies are detected to >=5 B. burgdorferi proteins, and the Lyme IgM Immunoblot is interpreted as positive if IgM-class antibodies are detected to >=2 B. burgdorferi proteins. Immunoblot patterns not meeting these criteria should not be interpreted as positive. Epitopes from certain B. burgdorferi proteins (e.g., p41) are conserved across other bacteria, which may lead to the detection of IgM- and/or IgG-class antibodies on the Lyme disease immunoblots in patients without Lyme disease. Immunoblot should only be ordered on specimens that are positive or equivocal by a FDA-licensed Lyme disease antibody screening test (e.g., EIA). Results of the Lyme IgM immunoblot should not be considered in patients with >=30 days of symptoms. Test Performed by: [facility] - [facility] [address] [place] [address] 14 Normal Range 180 to 914 Indeterminate Range 145 to 180 Deficient Range <145 15 Test Performed by: [facility] - [address] [address] 16 RESULT: Results suggest past infection. ADDITIONAL INFORMATION In most populations, at least 90% of the adult population will have been infected with EBV sometime in the past and therefore, will be positive for anti-VCA/IgG and anti- EBNA. Antibodies to EBNA develop 6-8 weeks after primary infection and remain present for life. Presence of VCA/ IgM antibodies indicates recent primary infection with EBV. Test Performed by: [facility] [address] [place] [address] 17 RESULT: 04:01,05:01 REFERENCE VALUE Not Applicable 18 RESULT: 02:01,04:02 DQ Serologic Equivalent: 2,4 REFERENCE VALUE Not Applicable 19 These genes are permissive for celiac disease. The absence of HLA celiac permissive genes would make the presence of celiac disease unlikely. However, these genes can also be present in the normal population. ADDITIONAL INFORMATION Method: Molecular typing of HLA antigens performed using reverse SSOP and/or SSP methods, reported as serological equivalents and low to medium resolution molecular values. Performing Laboratory CLIA# [id number] Test Performed by: [facility] [address] [place] [address] 20 REFERENCE VALUE <4.0 (Negative) Test Performed by: [address] [address] 21 Negative serology. Celiac disease unlikely. However, approximately 10% of patients with celiac disease are seronegative. Also, patients who are already adhering to a gluten-free diet may be seronegative. If celiac disease is highly clinically suspected, consider HLA-DQ typing. Test Performed by: [facility] - [facility] [address] [place] [address] 22 Test Performed by: [facility] [address] [place] [address] 23 Test Performed by: [facility] [address] [place] [address] 24 REFERENCE VALUE <30.0 (Negative) Test Performed by: [facility] [employer] [address] [place] [address] 25 REFERENCE VALUE <1.0 (Negative) 26 REFERENCE VALUE <1.0 (Negative) 27 REFERENCE VALUE <1.0 (Negative) 28 REFERENCE VALUE <1.0 (Negative) 29 REFERENCE VALUE <1.0 (Negative) 30 REFERENCE VALUE <1.0 (Negative) Test Performed by: [facility] [employer] [address] [place] [address] 31 Test Performed by: [facility] [address] [place] [address] Procedures Description No Information Available Encounters Type Date Location Provider Dx Diagnosis Office Visit 12/01/2018 Rheumatology Sean Nelson, 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 blood cell count, unspecified R20.8 Other disturbances of skin sensation R53.83 Other fatigue M06.4 Inflammatory polyarthropathy R51 Headache Office Visit 09/02/2010 DO Not Use Elhamcony Gee, 780.79 Malaise And 2:45p Dustin Robertson, FACP Fatigue Other Office Visit 06/05/2010 DO Not Use Elham Marlen, 626.0 Menstruation 2:30p Dustin Robertson, FACP Absence 309.0 Adjustment Disorder With Depression 300.00 Anxiety State Unspec Office Visit 02/13/2010 10:00a DO Not Use Elham Marlen, 465.9 URI Upper Dustin Robertson, FACP Respiratory Infections Acute Unspec Sites Office Visit 02/10/2010 12:00p DO Not Use Elhamcony Gee, 780.79 Malaise And Dustin Robertson, FACP Fatigue Other 079.99 Viral Infection Unspec Office Visit 11/27/2009 DO Not Use Elham Marlen, 617.9 Endometriosis Site 9:15a Dustin Robertson, FACP Unspec 311 Depressive Disorder Not Elsewhere Spec 300.00 Anxiety State Unspec V04.81 Need For Prophylactic Vaccination & Inoculation/Influenza Plan of Treatment Future Appointment(s):01/03/2019 11:00 am - Christianne Moore NP at [facility] [id number]/19/2019 2:20 pm - Sean Nelson M.D. at [facility]
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
--- OUTSIDE RECORDS SUMMARY | 2018-12-24 21:33 | XMS REPORT | Continuity of Care Document ---
:1980 External Reference #:[id number] Author Name Jessica Carbajal Care Team Providers Name Role Phone Gal Blackmon D.O. Primary Care Physician Unavailable Payers Type Date Identification Numbers Payment Provider Subscriber Policy Number: [id number] Isai Veras Group Name: [id number] [address] PayID: [id number] [place] [address] Advance Directives Description No Information Available Problems Description No Information Family History Date Family Member(s) Problem(s) Comments General Diabetes General Possible Lupus Father Diabetes Mother Lyme in her mother Social History Type Date Description Comments Sex Unknown ETOH Use Rarely consumes alcohol ETOH Use Drinks Alcoholic Beverages Occasionally Tobacco Use Start: Unknown End: Patient is a former smoker Unknown Smoking Status Reviewed: 12/01/18 Patient is a former smoker Exercise Type/Frequency [...] Nelson Tramadol HCL 10/19/ Active Tablets 50mg 30tabs Take 1 2017 Tablet By Omar Mouth Two M.D. Times Daily as Needed For Pain Maximum Daily Dose Of 2 Tablets Per Day (if not too soon) Clonazepam / Active Tablets 0.5mg take one tab [place], 0000 bid (prn) MD Trip Baclofen / Active Tablets 10mg prn Richard, 0000 Sandra Neff MD Zolpidem / Active Tablets 10mg Take 1 Unknown Tartrate 0000 Tablet By Mouth Nightly as Needed Maximum Daily Dose Of 1 Per Day Zofran 06/04/ Hx Tablets 4mg 10tabs 1 q 6 hours Elham 2009 - prn nausea Marlne, 10/04/ M.D., FACP 2018 Prempro 06/04/ Hx Tablets Unknown 30tabs po qd Elham 2009 - , M.D., FACP 2009 Lupron 06/04/ Hx Unknown [...] CPT Code Status Date Vaccine Lot # 51360 Given 11/27/2009 Influenza Virus Vaccine, Pandemic Formulation 28468 Given 11/27/2009 Administration Swine Flu Shot Vital Signs Date Vital Result Comment 12/01/2018 2:28pm Height 69 inches 5'9" Weight [...] Result H/L Range Note 1,25 Dihydroxy 10/04/2018 Vitamin D 1,25 TNP () 1 Vitamin D [address] (Oh) 2, [place] [address] [phone] Vitamin D3 1,25 (Oh) 2 TNP () 2 Vitamin D2 1,25 (Oh) 2 TNP () 3 Hla B27 10/04/2018 Hla B27 Positive [address] [place] [address] [phone] Hla B27 Interp See Comment 5 CBC Auto Diff 10/04/2018 White Blood 4.2 10^3/uL N 3.5-10.[address] [place] [address] [phone] Red Blood Count 4.25 10^6/uL N 4.00-5.40 [...] Blood Cells % 0 Laboratory test 10/04/2018 Ach Receptor 0.00 nmol/L <=0.02 [address] [place] [address] [phone] Cyclic Citrullinated Pep Igg <15.6 U 7 Erythrocyte Sed Rate 8 mm/Hr N 0-14 C Reactive Protein < 1.00 mg/L N <8.01 Ferritin 13.9 ng/mL N 11-307 Transferrin 264 mg/dL N 203-362 Tick-Borne Panel 10/04/2018 Babesia Negative Negative PCR Blood [address] [place] [address] [phone] Babesia ducani Negative Negative Babesia divergens/Mo-1 Negative Negative 8 Anaplasma phagocytophilum Negative Negative Ehrlichia chaffeensis Negative Negative Ehrlichia ewingii/canis Negative Negative Ehrlichia muris-like Negative Negative 9 B. miyamotoi PCR, B Negative Negative 10 Lyme Western 10/04/2018 Lyme Disease Negative Negative Blot [address] [place] [address] [phone] Lyme Disease IgG Bands Present No bands detecte <SEE NOTE> kDa 11 Lyme Disease IgM Ab WB Negative Negative Lyme Disease IgM Bands Present No bands detecte <SEE NOTE> kDa 12 Lyme Disease Interpretation See Comment 13 Laboratory test 10/04/2018 Creatine 36 U/L N 10- [address] Kinase(CK) [place] [address] [phone] Vitamin B12 And 10/04/2018 Vitamin B12 349 pg/mL N 180-914 14 Folate Serum [address] [place] [address] [phone] Folic Acid (Folate) 18.92 ng/mL >3.99 Immunoglobulins 10/04/2018 Immunoglobulin G 1190 767 - 15 Serum Quant [address] mg/dL 1590 [place] [address] [phone] Immunoglobulin M 162 mg/dL 37 - 286 Immunoglobulin A 182 mg/dL 61 - 356 Donavan Stephens 10/04/2018 Ebv Capsid Positive Negative Comprehensive [address] [place] [address] [phone] Ebv Capsid Ag IgM Ab Negative Negative Donavan-Stehpens Nuclear Antigen Positive Negative Donavan-Stephens Virus Interp See Comment 16 Celiac Hla 10/04/2018 Hla-Dqa1 SEE BELOW [address] [place] [address] [phone] Hla-DQB1 SEE BELOW 18 Celiac Gene Pairs Present? Yes Celiac Gene Interpretation See Comment 19 Celiac Panel 10/04/2018 Tissue Transglutaminase <1.2 U/mL [address] [place] [address] [phone] Immunoglobulin A 181 mg/dL 61 - 356 Celiac Interpretation See Comment 21 Laboratory 10/04/2018 Complement C3 73 mg/dL Abnormal 75 - 22 test finding [address] [place] [address] [phone] Complement C4 10 mg/dL Abnormal 14 - 40 23 Anti Double Stranded Dna AB <12.3 IU/mL 24 Cony Igg AB Reflex 10/04/2018 SS-A/Ro Antibody <0.2 U [address] [place] [address] [phone] SS-B/La Antibody <0.2 U 26 Sm (Tanner) IgG Antibody <0.2 U 27 PEDIATRIC HOSPITALIST Antibody, IgG 0.2 U 28 Scl-70 (Scleroderma) Antibody <0.2 U 29 Yana-1 Antibody <0.2 U 30 Laboratory test 10/04/2018 Angiotensin 21 U/L 8 - [address] [place] [address] [phone] 1 Vitamin D, 1,25-Dihydroxy was cancelled on 10/07/2018 at 09:11; Reason: Test obsolete-cancel FV125, change order to DHVD. 2 Vitamin D, 1,25-Dihydroxy was cancelled on 10/07/2018 at 09:11; Reason: Test obsolete-cancel FV125, change order to DHVD. 3 Vitamin D, 1,25-Dihydroxy was cancelled on 10/07/2018 at 09:11; Reason: Test obsolete-cancel FV125, change order to DHVD. Test Performed by: [facility] [place] [address] [place] [address] 4 REFERENCE VALUE Not Applicable 5 HLA-B27 [...] INFORMATION Method: Flow Cytometry Performing Laboratory CLIA# [id number] Test Performed by: [facility] - [address] [address] 6 ADDITIONAL INFORMATION This test was developed and its performance characteristics determined by [facility] in a manner consistent with CLIA requirements. This test has not been cleared or approved by the U.S. Food and Drug Administration. Test Performed by: [facility] - [address] [address] 7 REFERENCE VALUE <20.0 (Negative) Test Performed by: [facility] - [facility] [address] [place] [address] 8 ADDITIONAL INFORMATION This test was developed and its performance characteristics determined by [facility] in a manner consistent with CLIA requirements. This test has not been cleared or approved by the U.S. Food and Drug Administration. 9 ADDITIONAL INFORMATION This test was developed and its performance characteristics determined by [facility] in a manner consistent with CLIA requirements. This test has not been cleared or approved by the U.S. Food and Drug Administration. 10 ADDITIONAL INFORMATION This test was developed and its performance characteristics determined by [facility] in a manner consistent with CLIA requirements. This test has not been cleared or approved by the U.S. Food and Drug Administration. Test Performed by: [facility] - [address] [address] 11 No bands detected 12 No bands [...] >=30 days of symptoms. Test Performed by: [facility] - [facility] [address] [place] [address] 14 Normal Range 180 to 914 Indeterminate Range 145 to 180 Deficient Range <145 15 Test Performed by: [facility] - [facility] [address] [place] [address] 16 RESULT: Results suggest past infection. ADDITIONAL [...] primary infection with EBV. Test Performed by: [facility] - [facility] [address] [place] [address] 17 RESULT: 04:01,05:01 REFERENCE VALUE Not Applicable [...] medium resolution molecular values. Performing Laboratory CLIA# [id number] Test Performed by: [address] [address] 20 REFERENCE VALUE <4.0 (Negative) Test Performed by: [address] [address] 21 Negative serology. Celiac disease unlikely. However, approximately 10% of patients with celiac disease are seronegative. Also, patients who are already adhering to a gluten-free diet may be seronegative. If celiac disease is highly clinically suspected, consider HLA-DQ typing. Test Performed by: [address] [address] 22 Test Performed by: [address] [address] Test Performed by: [address], [place] [address] 24 REFERENCE VALUE <30.0 (Negative) Test Performed by: [facility] - [address] [address] 25 REFERENCE VALUE <1.0 (Negative) 26 REFERENCE VALUE <1.0 (Negative) 27 REFERENCE VALUE <1.0 (Negative) 28 REFERENCE VALUE <1.0 (Negative) 29 REFERENCE VALUE <1.0 (Negative) 30 REFERENCE VALUE <1.0 (Negative) Test Performed by: [facility] - [address] [address] 31 Test Performed by: [address] [address] Procedures Description No Information Available Encounters Type Date Location Provider Dx Diagnosis Office Visit 10/04/2018 Rheumatology Sean Nelson, D72.819 Decreased white 1:00p [facility] blood cell count, unspecified R20.8 Other disturbances of skin sensation R53.83 Other fatigue M06.4 Inflammatory polyarthropathy R51 Headache Office Visit 09/02/2010 DO Not Use Elham Marlen, 780.79 Malaise And 2:45p Dustin Robertson, FACP Fatigue Other Office Visit 06/05/2010 DO Not Use Elham Marlen, 626.0 Menstruation 2:30p Dustin Robertson, FACP Absence 309.0 Adjustment Disorder With Depression 300.00 Anxiety State Unspec Office Visit 02/13/2010 10:00a DO Not Use Elham Marlen, 465.9 URI Upper Dustin Robertson, FACP Respiratory Infections Acute Unspec Sites Office Visit 02/10/2010 12:00p DO Not Use Elham Marlen, 780.79 Malaise And Dustin Robertson, FACP Fatigue Other 079.99 Viral Infection Unspec Office Visit 11/27/2009 DO Not Use Elham Marlen, 617.9 Endometriosis Site 9:15a Dustin Robertson, FACP Unspec 311 Depressive Disorder Not Elsewhere Spec 300.00 Anxiety State Unspec V04.81 Need For Prophylactic Vaccination & Inoculation/Influenza Plan of Treatment Future Appointment(s):01/31/2019 2:20 pm - Sean Nelson M.D. at [facility]12/01/2018 - Sean Nelson M.D.M46.90 Unspecified inflammatory spondylopathy, site unspecifiedNew Medication:Meloxicam 7.5 mg - take one tab twice daily as needed for pain, avoid other wvwucrM94.819 Decreased white blood cell count, unspecifiedReferral:Dg Zacarias MD, Allergy & MqmdpsnbhlF60.0 Raised antibody titerReferral:Francisco Carter MD, IbograwdbefeimubT04.8 Other disturbances of skin sensationNew Medication:B12 Fast Dissolve 5000 mcg - sublingual dailyFollow up:Follow up in 2 months or sooner if needed
--- NOTE | 2018-12-24 22:33 | ED ---
HPI Chest Pain - HPI Summary HPI Summary: This patient is a 38 year old F presenting to [facility] with a chief complaint of worsening intermittent, tight, mid sternal CP since one week ago. The pain was significantly worse today. The patient rates the pain 8/10 in severity. Patient reports SOB, nausea, teeth abscesses, shoulder pain, and lower abdominal pain. The patient had an endoscopy three days ago at the endoscopy center by Dr. Carter. He said it showed erosion and he took biopsies. He did not cauterize anything. The patient saw a dentist two days ago where they did a root canal and gave her antibiotics for the abscesses in her teeth. She has been taking Vicodin for recovery from the root canal. PMHX arthritis, GERD, root canal. RX Klonopin .5mg, Tramadol BID. Vitals in the room: HR 64 bpm, BP 133/95. - History of Current Complaint Chief Complaint: EDChestPainROMI Time Seen by Provider: 12/24/18 22:14 Hx Obtained From: Patient Hx Last Menstrual Period: 04/30/18 Onset/Duration: Started Weeks Ago - 1 Timing: Intermittent, Lasting Days Initial Severity: Mild Current Severity: Moderate Pain Intensity: 8 Pain Scale Used: 0-10 Numeric Chest Pain Location: Mid Sternal Character: Tightness Associated Signs and Symptoms: Positive: Chest Pain, Shortness of Breath, Nausea , Abdominal Pain - Allergy/Home Medications Allergies/Adverse Reactions: Allergies Allergy/AdvReac Type Severity Reaction Status Date / Time No Known Allergies Allergy Verified 12/24/18 21:18 PMH/Surg Hx/FS Hx/Imm Hx Endocrine/Hematology History: Denies: Hx Diabetes Cardiovascular History: Denies: Hx Hypertension, Hx Pacemaker/ICD GI History: Reports: Hx Gastroesophageal Reflux Disease History: Reports: Other Problems/Disorders - ovarian cysts, endometriosis Denies: Hx Renal Disease Musculoskeletal History: Reports: Hx Arthritis Sensory History: Denies: Hx Legally Blind, Hx Hearing Aid Opthamlomology History: Denies: Hx Legally Blind EENT History: Reports: Other - root canal Psychiatric History: Reports: Hx Panic Disorder - HAS DAILY MEDS - Surgical History Surgery Procedure, Year, and Place: APPENDECTOMY 2008;. LAP FOR ENDOMETRIOSIS OCT 2009;. LAP FOR FIBROID REMOVAL AND ENDOMETRIOSIS MARCH 2013;. LAP FOR ENDOMETRIOSIS MAY 2018; Infectious Disease History: No Infectious Disease History: Denies: Traveled Outside the [place] in Last 30 Days - Family History Known Family History: Positive: Other - pos: endometriosis - Social History Alcohol Use: Rare Hx Substance Use: Yes Substance Use Type: Reports: Marijuana Substance Use Comment - Amount & Last Used: medical marijuana Hx Tobacco Use: Yes Smoking Status (MU): Current Some Day Smoker Review of Systems ENT: Other - teeth abcess Positive: Dental Pain Positive: Chest Pain Positive: Shortness Of Breath Positive: Abdominal Pain, Nausea Musculoskeletal: Other - shoulder pain All Other Systems Reviewed And Are Negative: Yes Physical Exam - Summary Physical Exam Summary: VITAL SIGNS: Reviewed. GENERAL: Patient is a well-developed and nourished female who is lying comfortable in the stretcher. Patient is not in any acute respiratory distress. HEAD AND FACE: No signs of trauma. No ecchymosis, hematomas or skull depressions. No sinus tenderness. EYES: PERRLA, EOMI x 2, No injected conjunctiva, no nystagmus. EARS: Hearing grossly intact. Ear canals and tympanic membranes are within normal limits. MOUTH: Oropharynx within normal limits. NECK: Supple, trachea is midline, no adenopathy, no JVD, no carotid bruit, no c- spine tenderness, neck with full ROM. CHEST: Symmetric, no tenderness at palpation LUNGS: Clear to auscultation bilaterally. No wheezing or crackles. CVS: Regular rate and rhythm, S1 and S2 present, no murmurs or gallops appreciated. ABDOMEN: Soft, non-tender. No signs of distention. No rebound no guarding, and no masses palpated. Bowel sounds are normal. EXTREMITIES: FROM in all major joints, no edema, no cyanosis or clubbing. NEURO: Alert and oriented x 3. No acute neurological deficits. Speech is normal and follows commands. SKIN: Dry and warm Triage Information Reviewed: Yes Vital Signs On Initial Exam: Initial Vitals Temp Pulse Resp BP Pulse Ox 97.8 F 71 18 133/96 98 12/24/18 21:17 12/24/18 21:17 12/24/18 21:17 12/24/18 21:17 12/24/18 21:17 Vital Signs Reviewed: Yes Diagnostics - Vital Signs Vital Signs Temp Pulse Resp BP Pulse Ox 12/24/18 22:12 60 14 97 12/24/18 22:10 60 14 133/95 100 12/24/18 21:17 97.8 F 71 18 133/96 98 - Laboratory Result Diagrams: 12/24/18 22:48 12/24/18 22:48 Lab Statement: Any lab studies that have been ordered have been reviewed, and results considered in the medical decision making process. - CT Abd/Pelvis CT Interpretation Completed By: Radiologist Summary of CT Findings: Negative, ED physician has reviewed this report. - EKG 21:21 Cardiac Rate: NL - 66 bpm EKG Rhythm: Sinus Rhythm Summary of EKG Findings: P waves, QRS complex, and T waves are within normal limits, T waves and intervals are normal, no ischemic changes. Chest Pain Course/Dx - Course Course Of Treatment: This patient is a 38 year old F presenting to [facility] with a chief complaint of worsening intermittent, tight, mid sternal CP since one week ago. The pain was significantly worse today. The patient rates the pain 8/10 in severity. Patient reports SOB, nausea, teeth abscesses, shoulder pain, and lower abdominal pain. An EKG reveals NSR 66 bpm, P waves, QRS complex, and T waves are within normal limits, T waves and intervals are normal, no ischemic changes. Abd/Pelvis CT reveals, per radiologist, negative CT abd/pelvis. ED physician has reviewed this radiology report. Test results with no significant abnormalities. In the ED course the patient was given Metoclopramide, Iohexol, and Pantoprazole. Patient will be discharged with prescription for Pantoprazole and follow up from Dr. Blackmon. The patient is agreeable with this plan. - Diagnoses Provider Diagnoses: Chest pain, GERD (gastroesophageal reflux disease) Discharge - Sign-Out/Discharge Documenting (check all that apply): Patient Departure - dishcarge Patient Received Moderate/Deep Sedation with Procedure: No - Discharge Plan Condition: Stable Disposition: HOME Prescriptions: Pantoprazole TAB * [Protonix TAB*] 40 mg PO DAILY #30 tab Patient Education Materials: Chest Pain (ED), Gastroesophageal Reflux Disease ( ED) Referrals: Gal Blackmon DO [Primary Care Provider] - 2 Days Additional Instructions: Follow up with your primary care physician in 1-3 days. RETURN TO THE EMERGENCY DEPARTMENT FOR CHANGING OR WORSENING SYMPTOMS. - Billing Disposition and Condition Condition: STABLE Disposition: Home - Attestation Statements Document Initiated by Scribe: Yes Documenting Scribe: Bassem West Provider For Whom Scribe is Documenting (Include Credential): Omar Moran MD Scribe Attestation: I, Bassem West, scribed for Omar Moran MD on 12/25/18 at 2121. Scribe Documentation Reviewed: Yes Provider Attestation: The documentation as recorded by the [email or web address] accurately reflects the service I personally performed and the decisions made by me, Omar Moran MD Status of Scribe Document: Viewed
[2018-12-24] MEDS ORDERED: Pantoprazole IV* 40 MG IV ONE (22:36)
[2018-12-24] MEDS ORDERED: Metoclopramide IV* 5 MG/ML 2 ML VIAL IV SLOW PU ONE (22:37)
[2018-12-24 22:57] LABS: ABS Basophils 0 10^3/ul (0-0.2); ABS Eosinophils 0.1 10^3/ul (0-0.6); ABS Lymphocytes 1.5 10^3/ul (1.0-4.8); ABS Monocytes 0.7 10^3/ul (0-0.8); ABS Neutrophils 1.7 10^3/ul (1.5-7.7); ABS Nucleated RBC 0 10^3/ul; Eosinophil % 2.4 %; Hematocrit 34 % (35-47); Hemoglobin 11.2 g/dl (12.0-16.0); Lymphocyte % 37.9 %; Mean Corpuscular HGB Conc 33 g/dl (31-36); Mean Corpuscular Hemoglobin 30 pg (27-31); Mean Corpuscular Volume 89 fL (80-97); Mean Platelet Volume 7.9 fL (7.4-10.4); Nucleated Red Blood Cells % 0; Platelet Count 191 10^3/ul (150-450); Red Blood Count 3.78 10^6/ul (4.00-5.40); Red Cell Distribution Width 13 % (10.5-15); White Blood Count 4.1 10^3/ul (3.5-10.8)
[2018-12-24 23:05] LABS: Activated Partial Thrombo Time 31.4 seconds (26.0-36.3)
[2018-12-24 23:14] LABS: ALT 9 U/L (7-52); AST 11 U/L (13-39); Albumin 4.3 g/dL (3.2-5.2); Albumin/Globulin Ratio 2.2 (1-3); Alkaline Phosphatase 40 U/L (34-104); Amylase 59 U/L (29-103); Anion Gap 3 mmol/L (2-11); BUN/Creatinine Ratio 19.7 (8-20); Blood Urea Nitrogen 15 mg/dL (6-24); CO2 Carbon Dioxide 25 mmol/L (22-32); Calcium 8.7 mg/dL (8.6-10.3); Chloride 109 mmol/L (101-111); EGFR Non-African American 84.3 (>60); Glucose 94 mg/dL (70-100); Potassium 4.3 mmol/L (3.5-5.0); Sodium 137 mmol/L (135-145); Total Protein 6.3 g/dL (6.4-8.9)
[2018-12-24 23:20] LABS: HCG Pregnancy < 0.60 mIU/mL
[2018-12-24] MEDS ORDERED: Iohexol 300* (CONTRAST) 10 ML SDV IV ONE (23:33)
[2018-12-25 01:00] VITALS: BP 115/76
== END 2018-12-25 01:09 | disposition home or self-care (01) ==
LOC: ED 21:10
DX: R07.9 Chest pain, unspecified (principal); K21.9 Gastro-esophageal reflux disease without esophagitis; R06.02 Shortness of breath; R11.10 Vomiting, unspecified; Z72.0 Tobacco use; K08.89 Other specified disorders of teeth and supporting structures
CPT/HCPCS: 36415; 71260; 74177; 80053; 82150; 83690; 83735; 84484; 84702; 85025; 85610; 85730; 93005; 96374; 96375; 99283; J2765; Q9967

== ENCOUNTER 2018-12-29 12:06 | Emergency (ER) | payer OTHER ==
[2018-12-29] MEDS ORDERED: LORazepam TAB(*) 1 MG PO ONE (14:17)
[2018-12-29] MEDS ORDERED: Acetaminophen TAB* 325 MG PO ONE (14:17)
[2018-12-29] MEDS ORDERED: Ondansetron ODT TAB* 4 MG SL ONE (14:41)
[2018-12-29 14:57] LABS: ABS Basophils 0 10^3/ul (0-0.2); ABS Eosinophils 0 10^3/ul (0-0.6); ABS Lymphocytes 1.2 10^3/ul (1.0-4.8); ABS Monocytes 0.5 10^3/ul (0-0.8); ABS Neutrophils 1.7 10^3/ul (1.5-7.7); ABS Nucleated RBC 0 10^3/ul; Eosinophil % 1.2 %; Hematocrit 38 % (35-47); Mean Corpuscular HGB Conc 34 g/dl (31-36); Mean Corpuscular Hemoglobin 30 pg (27-31); Mean Corpuscular Volume 87 fL (80-97); Mean Platelet Volume 7.9 fL (7.4-10.4); Nucleated Red Blood Cells % 0; Platelet Count 244 10^3/ul (150-450); Red Blood Count 4.36 10^6/ul (4.00-5.40); Red Cell Distribution Width 12 % (10.5-15); White Blood Count 3.5 10^3/ul (3.5-10.8)
[2018-12-29 15:14] LABS: ALT 11 U/L (7-52); AST 14 U/L (13-39); Albumin 5.1 g/dL (3.2-5.2); Alkaline Phosphatase 46 U/L (34-104); Anion Gap 7 mmol/L (2-11); BUN/Creatinine Ratio 14.5 (8-20); Blood Urea Nitrogen 11 mg/dL (6-24); C Reactive Protein < 1.00 mg/L (<8.01); CO2 Carbon Dioxide 24 mmol/L (22-32); Calcium 9.6 mg/dL (8.6-10.3); Chloride 105 mmol/L (101-111); EGFR Non-African American 84.3 (>60); Globulin 2.5 g/dL (2-4); Glucose 85 mg/dL (70-100); Potassium 4.1 mmol/L (3.5-5.0); Sodium 136 mmol/L (135-145); Total Protein 7.6 g/dL (6.4-8.9)
--- NOTE | 2018-12-29 16:10 | ED ---
Abdominal Pain/Female - HPI Summary HPI Summary: Patient is a 38-year-old female presenting to the ED with multiple complaints. She is inconsolably crying on arrival. She states she lost her friend to a heroin overdose earlier this week, as well as the stress of taking on caring for her father who had a stroke 2 years ago. She also endorses depression due to being on Medicaid and not having a job. She however denies any SI or HI. She is stating due to all these stressors, she is having mid lower abdominal pain 3 days as well as intermittent headaches. She endorses shortness of breath and she thinks of her stressors. She states she has been crying for 3 days and has not taken any medication for anxiety. Patient does endorse a history of anxiety. - History of Current Complaint Chief Complaint: EDGeneral Stated Complaint: SOB/CHEST PAIN/EXTREMITIES FEEL TINGLY Time Seen by Provider: 12/29/18 14:04 Hx Obtained From: Patient Hx Last Menstrual Period: 04/30/18 ?: No Onset/Duration: Sudden Onset Timing: Constant Severity Initially: Severe Severity Currently: Severe Pain Intensity: 7 Pain Scale Used: 0-10 Numeric Aggravating Factor(s): Nothing Alleviating Factor(s): Nothing Associated Signs and Symptoms: Positive: Negative - Risk Factors Ectopic Risk Factor: Negative Ovarian Torsion Risk Factor: Negative Allergies/Adverse Reactions: Allergies Allergy/AdvReac Type Severity Reaction Status Date / Time No Known Allergies Allergy Verified 12/24/18 21:18 PMH/Surg Hx/FS Hx/Imm Hx Previously Healthy: Yes Endocrine/Hematology History: Denies: Hx Diabetes Cardiovascular History: Denies: Hx Hypertension, Hx Pacemaker/ICD GI History: Reports: Hx Gastroesophageal Reflux Disease History: Reports: Other Problems/Disorders - ovarian cysts, endometriosis Denies: Hx Renal Disease Musculoskeletal History: Reports: Hx Arthritis Sensory History: Denies: Hx Legally Blind, Hx Hearing Aid Opthamlomology History: Denies: Hx Legally Blind Psychiatric History: Reports: Hx Panic Disorder - HAS DAILY MEDS - Surgical History Surgery Procedure, Year, and Place: APPENDECTOMY 2008;. LAP FOR ENDOMETRIOSIS OCT 2009;. LAP FOR FIBROID REMOVAL AND ENDOMETRIOSIS MARCH 2013;. LAP FOR ENDOMETRIOSIS MAY 2018; - Immunization History Hx Pertussis Vaccination: No Immunizations Up to Date: Yes Infectious Disease History: No Infectious Disease History: Denies: Traveled Outside the [place] in Last 30 Days - Family History Known Family History: Positive: Other - pos: endometriosis - Social History Occupation: Unemployed Lives: With Family Alcohol Use: Rare Hx Substance Use: Yes Substance Use Type: Reports: Marijuana Substance Use Comment - Amount & Last Used: medical marijuana Hx Tobacco Use: Yes Smoking Status (MU): Former Smoker Review of Systems Constitutional: Negative Negative: Fever, Chills, Fatigue, Skin Diaphoresis Negative: Palpitations, Chest Pain Negative: Shortness Of Breath, Cough Positive: Abdominal Pain - lower mid, Nausea Genitourinary: Negative Positive: no symptoms reported, see HPI Negative: Arthralgia Positive: Headache Positive: Anxious All Other Systems Reviewed And Are Negative: Yes Physical Exam Triage Information Reviewed: Yes Vital Signs On Initial Exam: Initial Vitals Temp Pulse Resp BP Pulse Ox 99.1 F 96 26 131/100 100 12/29/18 12:25 12/29/18 12:25 12/29/18 12:25 12/29/18 12:25 12/29/18 12:25 Vital Signs Reviewed: Yes Appearance: Positive: Well-Appearing, Well-Nourished Skin: Positive: Warm, Skin Color Reflects Adequate Perfusion Neck: Positive: Nontender, No Lymphadenopathy Respiratory/Lung Sounds: Positive: Clear to Auscultation, Breath Sounds Present Cardiovascular: Positive: RRR, Pulses are Symmetrical in both Upper and Lower Extremities Musculoskeletal: Positive: Strength/ROM Intact Neurological: Positive: Sensory/Motor Intact, Alert, Oriented to Person Place, Time Psychiatric: Positive: Anxious, Depressed AVPU Assessment: Alert - Echo Coma Scale Best Eye Response: 4 - Spontaneous Best Motor Response: 6 - Obeys Commands Best Verbal Response: 5 - Oriented Coma Scale Total: 15 Diagnostics - Vital Signs Vital Signs Temp Pulse Resp BP Pulse Ox 12/29/18 14:50 20 12/29/18 12:25 99.1 F 96 26 131/100 100 - Laboratory Lab Results: Lab Results 12/29/18 12/29/18 Range/Units 14:50 14:50 WBC 3.5 (3.5-10.8) 10^3/ul RBC 4.36 (4.00-5.40) 10^6/ul Hgb 13.0 (12.0-16.0) g/dl Hct 38 (35-47) % MCV 87 (80-97) fL MCH 30 (27-31) pg MCHC 34 (31-36) g/dl RDW 12 (10.5-15) % Plt Count 244 (150-450) 10^3/ul MPV 7.9 (7.4-10.4) fL Neut % (Auto) 49.0 % Lymph % (Auto) 34.0 % Adams % (Auto) 14.6 % Eos % (Auto) 1.2 % Baso % (Auto) 1.2 % Absolute Neuts (auto) 1.7 (1.5-7.7) 10^3/ul Absolute Lymphs (auto) 1.2 (1.0-4.8) 10^3/ul Absolute Monos (auto) 0.5 (0-0.8) 10^3/ul Absolute Eos (auto) 0 (0-0.6) 10^3/ul Absolute Basos (auto) 0 (0-0.2) 10^3/ul Absolute Nucleated RBC 0 10^3/ul Nucleated RBC % 0 Sodium 136 (135-145) mmol/L Potassium 4.1 (3.5-5.0) mmol/L Chloride 105 (101-111) mmol/L Carbon Dioxide 24 (22-32) mmol/L Anion Gap 7 (2-11) mmol/L BUN 11 (6-24) mg/dL Creatinine 0.76 (0.51-0.95) mg/dL Est GFR ( Amer) 102.0 (>60) Est GFR (Non-Af Amer) 84.3 (>60) BUN/Creatinine Ratio 14.5 (8-20) Glucose 85 (70-100) mg/dL Calcium 9.6 (8.6-10.3) mg/dL Total Bilirubin 0.80 (0.2-1.0) mg/dL AST 14 (13-39) U/L ALT 11 (7-52) U/L Alkaline Phosphatase 46 (34-104) U/L C-Reactive Protein < 1.00 (<8.01) mg/L Total Protein 7.6 (6.4-8.9) g/dL Albumin 5.1 (3.2-5.2) g/dL Globulin 2.5 (2-4) g/dL Albumin/Globulin Ratio 2.0 (1-3) Result Diagrams: 12/29/18 14:50 12/29/18 14:50 Lab Statement: Any lab studies that have been ordered have been reviewed, and results considered in the medical decision making process. Abdominal Pain Fem Course/Dx - Course Course Of Treatment: Discussed with patient her symptoms are likely related to anxiety. She has been inconsolably crying for several days has had recent stresses in her life. She states since having the stressors, she has developed intermittent abdominal pain, intermittent headaches and shortness of breath at times. She denies any vomiting, however endorses nausea. She denies any urinary symptoms, back pain, constipation, diarrhea. She states she has had a history of anxiety, but never so bad it caused physical symptoms. Labs obtained and these are all WNL. CT abdomen and pelvis obtained which shows no acute findings. After Ativan given and Zofran given to patient, she states she is feeling improved. She states she believes her physical symptoms are from her stress and anxiety. I discussed this at length with the patient and have encouraged her to rest and decrease her stress as much as possible. Patient agrees with plan and discharge. She has Klonopin at home for her anxiety and stress symptoms. Head encouraged her to to continue taking his medication and follow-up with her PCP. - Diagnoses Provider Diagnoses: Stress at home, Anxiety Discharge - Sign-Out/Discharge Documenting (check all that apply): Patient Departure Patient Received Moderate/Deep Sedation with Procedure: No - Discharge Plan Condition: Stable Disposition: HOME Patient Education Materials: Stress (ED), Anxiety (ED) Referrals: Gal Blackmon DO [Primary Care Provider] - Additional Instructions: As discussed, he needs to take care of herself and rest at this time You have been through some trauma and it is important to process this I believe your stress symptoms are manifesting into physical ones You are okay to take one of your Klonopin medication doses when you arrive home It is my recommendation you take out some stressors in her life to allow yourself to heal - Billing Disposition and Condition Condition: STABLE Disposition: Home
[2018-12-29 16:11] VITALS: BP 126/80
== END 2018-12-29 17:05 | disposition home or self-care (01) ==
LOC: ED 12:06
DX: F41.9 Anxiety disorder, unspecified (principal); F43.9 Reaction to severe stress, unspecified; R06.02 Shortness of breath; R07.9 Chest pain, unspecified; Z87.891 Personal history of nicotine dependence; R51 Headache
CPT/HCPCS: 36415; 74176; 80053; 85025; 86140; 93005; 99283; A9270-GY